=== PATIENT | male | born 2000 | race Caucasian/White ===

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

== ENCOUNTER 2022-11-03 15:19 | Emergency (ER) | payer OTHER, SELFPAY ==
--- NOTE | 2022-11-03 15:20 | ED.SKABFB ---
HPI - Skin/Abscess/Foreign Bdy General Chief complaint: Wound/Laceration Stated complaint: Laceration to Left Arm Time Seen by Provider: 11/03/22 15:20 Source: patient and RN notes reviewed History of Present Illness HPI narrative: Patient is a 22-year-old male who presents to urgent care with complaints of a laceration to the left arm. Patient spoke to the nurse and when asked if he was suicidal heat was told ?that was my original thought but then I came to my senses?. Patient states that he used a steroid knife to cut the area on his left arm at approximately 3:00 p.m. this afternoon. Patient is currently denying any suicidal or homicidal thoughts. No other acute complaints or injuries. No acute distress noted. Patient aware of the plan care. Some parts of this dictation were generated by voice recognition software and may contain typographical and/or grammatical inaccuracies. Related Data Home Medications Medication Instructions Recorded Confirmed No Home Medications 09/03/19 11/03/22 Allergies Allergy/AdvReac Type Severity Reaction Status Date / Time acetaminophen Allergy Severe Hives / Verified 11/03/22 15:32 Red Face Penicillins Allergy Mild Unknown Verified 11/03/22 15:32 amoxicillin Allergy Unknown RASH Verified 11/03/22 15:32 codeine AdvReac Mild Nausea and Verified 11/03/22 15:32 Vomiting Review of Systems Review of Systems: CONSTITUTIONAL: Denies fever, chills, or sweats. EYES: Denies visual changes, redness, or discharge. ENT: Denies rhinorrhea, congestion, sore throat, or otalgia. CARDIOVASCULAR: Denies chest pain, palpitations, or edema. RESPIRATORY: Denies cough or dyspnea. GASTROINTESTINAL: Denies abdominal pain, nausea, vomiting, or diarrhea. GENITOURINARY: Denies dysuria or hematuria. SKIN: Reports laceration to the left arm MUSCULOSKELETAL: Denies back pain, joint pain, or myalgia. NEUROLOGIC: Denies headache, numbness, or weakness. Psychiatric: Patient admits to having suicidal thoughts causing himself to cut himself. All other systems reviewed are negative, except as documented in HPI. PMFSH Comments At the time of my signature, I reviewed and agree with the nursing past medical, surgical, social, and family history. There is no relevant family history pertinent to the patient complaint. Exam Narrative: GENERAL: This is a well-nourished, well-developed patient, in no apparent distress. HEAD: normocephalic, atraumatic. EYES: PERRL. Sclera clear/white. Vision is grossly intact. EARS: External ears normal NOSE: External nose normal with no obvious nasal discharge, nares without redness, no rhinorrhea. THROAT: Mucous membranes moist NECK: Neck supple SKIN: 7 cm in length by 1 cm and gaping with to the left forearm, self-inflicted with a knife NEURO: awake, alert, and oriented to person, place and time. There were no obvious focal neurologic abnormalities. EXTREMITIES: No clubbing, cyanosis, or edema. Course Course Level of Care: Express Care Visit Vital Signs Vital signs: Vital Signs Temperature 98.8 F 11/03/22 15:25 Pulse Rate 74 11/03/22 15:25 Respiratory Rate 14 11/03/22 15:25 Blood Pressure 125/68 11/03/22 15:25 Pulse Oximetry 100 11/03/22 15:25 Oxygen Delivery Room Air 11/03/22 15:25 Temperature 98.8 F 11/03/22 15:25 Pulse Rate 74 11/03/22 15:25 Respiratory Rate 14 11/03/22 15:25 Blood Pressure 125/68 11/03/22 15:25 Pulse Oximetry 100 11/03/22 15:25 Oxygen Delivery Room Air 11/03/22 15:25 Reviewed Transfer Transfered to: Other (With law enforcement/EMS) Transportation: BLS (And law enforcement) Transfer rationale: Suicidal attempt with laceration to the left forearm Procedures Laceration Laceration 1: Site: upper extremity Side (If applicable): left Size (cm): 7 Description: linear Depth: simple, single layer Local Anesthetic: none (Patient refused) Pre-repair
[2022-11-03 15:25] VITALS: BP 125/68; PULSE 74; RESP 14; TEMP 37.1; O2SAT 100
--- NOTE | 2022-11-03 16:35 | PC.NURSE ---
1600- [place] [employer] NOTIFIED OF SUICIDAL PATIENT. 1610 POLICE AND EMS ARRIVED.
== END 2022-11-03 16:23 ==
PROVIDERS: Emergency Provider Nurse Practitioner Family
DX: S51.812A Laceration without foreign body of left forearm, initial encounter (principal); X78.1XXA Intentional self-harm by knife, initial encounter
CPT/HCPCS: 12002; 99212; G0463